=== PATIENT | male | born 1945 ===

== ENCOUNTER 2017-11-15 14:58 | Outpatient (CLI) | payer OTHER ==
[~2017-11-15 14:58] MED LIST: AMARYL; AMBIEN5 MG PO; ASPIR 8181 MG PO; COREG CR10 MG PO; CRESTOR5 MG PO; DIOVAN HCT 320/1 TAB PO; ELAVIL; FOLIC ACID0.4 MG PO; GLUCOPHAGE XR500 MG PO; Hyzaar 50-12.5 Tablet PO; JANUVIA100 MG PO; JANUVIA25 MG PO; Januvia PO; LOVAZA1 G PO; METFORMIN HCL500 MG; METHOTREXATE2.5 MG; NORVASC 5MG TAB PO; NORVASC10 MG PO; PLAVIX75 MG PO; PREDNISOLONE5 MG PO; Pepcid 20 MG TABLET PO; Prednisone PO; TRIPLIX; TYLENOL 650 MG RC; XARELTO20 MG; ZOLOFT100 MG PO
== END 2017-11-15 15:02 | disposition home or self-care (01) ==
LOC: RAD 14:58
DX: J44.1 Chronic obstructive pulmonary disease with (acute) exacerbation (principal)

== ENCOUNTER 2018-05-11 09:24 | Outpatient (CLI) | payer OTHER | END 2018-05-11 09:30 | disposition home or self-care (01) | LOC: SONOGRAMA 09:24 | DX: N40.0 Benign prostatic hyperplasia without lower urinary tract symptoms (principal); R31.0 Gross hematuria; N20.0 Calculus of kidney; N40.1 Benign prostatic hyperplasia with lower urinary tract symptoms ==

== ENCOUNTER → 2018-12-15 | Outpatient (CLI) | payer OTHER | END | disposition home or self-care (01) | LOC: WOUND MED 11:34 | DX: E10.621 Type 1 diabetes mellitus with foot ulcer (principal); L97.522 Non-pressure chronic ulcer of other part of left foot with fat layer exposed; L97.512 Non-pressure chronic ulcer of other part of right foot with fat layer exposed | CPT/HCPCS: 11042; G0463; A4554; A4930; A6216; A6266 ==

== ENCOUNTER → 2018-12-26 | Outpatient (CLI) | payer OTHER | END | disposition home or self-care (01) | LOC: WOUND MED 10:33 | DX: E10.621 Type 1 diabetes mellitus with foot ulcer (principal); L97.522 Non-pressure chronic ulcer of other part of left foot with fat layer exposed; L97.512 Non-pressure chronic ulcer of other part of right foot with fat layer exposed | CPT/HCPCS: 11042; A4554; A4930; A6216; A6219 ==

== ENCOUNTER → 2019-01-02 | Outpatient (CLI) | payer OTHER | END | disposition home or self-care (01) | LOC: WOUND MED 10:19 | DX: E10.621 Type 1 diabetes mellitus with foot ulcer (principal); L97.522 Non-pressure chronic ulcer of other part of left foot with fat layer exposed; L97.512 Non-pressure chronic ulcer of other part of right foot with fat layer exposed | CPT/HCPCS: G0463; A4554; A4930; A6216 ==